=== PATIENT | male | born 1995 | race Two or more races ===

== ENCOUNTER 2018-06-05 23:27 | Emergency (ER) | payer OTHER, MEDICAID ==
[~2018-06-05] VITALS: Ht 175.3 cm; Wt 68.0 kg
--- NOTE | 2018-06-05 23:30 | NUR ---
PT IS ON A 5150 HOLD BY [employer] AT 2320. ORIGINAL HOLD IS IN THE CHART.
--- NOTE | 2018-06-05 23:30 | NUR ---
PT BIB [facility] AND [employer] WITH A C/O SI. PT WAS FOUND ON THE [address] AND WAS ABOUT TO JUMP. PT WAS PULLED OFF THE LEDGE BY [employer] AND PT REFUSED TO GIVE THE [employer] HIS NAME OR ADDRESS. PT APPEARS APPREHENSIVE OF ANSWERING QUESTIONS. PT IS ON THE MONITOR AND CONTINUOUS PULSE OX. SR UP X2, SHOES ARE IN A BAG IN THE NURSE'S STATION AND PT IS IN BILATERAL HAND RESTRAINTS. PT APPEARS CALM AND COOPERATIVE.
--- NOTE | 2018-06-05 23:58 | NUR ---
DRY MILL OPERATOR IS AT THE BEDSIDE FOR BLOOD DRAW.
--- NOTE | 2018-06-06 00:08 | NUR ---
REPORT FROM OFFICER JOSÉ LUIS, SMART [employer]AM. [address]. AND PT WAS GETTING READY TO JUMP WHEN [place] [employer] PULLED HIM DOWN. PT IS NOT ANSWERING QUESTIONS. PT STATED: " I NEEDED 10 MORE SECONDS". PT WILL NOT TELL OFFICERS HIS NAME OR WHERE HE LIVES.
[2018-06-06 00:22] LABS: BASOPHILS % (AUTO) 0.2 % (0.0-2.0); EOSINOPHILS % (AUTO) 1.7 % (0.0-6.0); HEMATOCRIT 44 % (39-51); HEMOGLOBIN 14.2 g/dL (13.5-17.5); LYMPHOCYTES # (AUTO) 1.4 /CMM (0.8-4.8); LYMPHOCYTES % (AUTO) 9.2 % (20.0-44.0); MEAN CORPUSCULAR HGB CONC 33 g/dl (31.0-36.0); MEAN CORPUSCULAR VOLUME 92 fL (80-96); MONOCYTES # (AUTO) 1.2 /CMM (0.1-1.30); NEUTROPHILS % (AUTO) 80.9 % (43.0-81.0); PLATELET COUNT (AUTO) 194 /CMM (150-450); RED BLOOD CELL COUNT(AUTO) 4.75 MIL/uL (4.5-6.0); WHITE BLOOD COUNT (AUTO) 14.8 K/uL (4.3-11.0)
--- NOTE | 2018-06-06 00:30 | NUR ---
PT IS UNABLE TO GIVE A URINE SAMPLE. PT HAS A URINAL.
[2018-06-06 00:33] LABS: CALCIUM, SERUM 9.7 mg/dL (8.5-10.1); CARBON DIOXIDE 30 mmol/L (21-32); CHLORIDE 104 mmol/L (98-107); CREATININE 1.4 mg/dL (0.6-1.3); GLUCOSE 92 mg/dL (74-106); POTASSIUM 4.2 mmol/L (3.5-5.1); SODIUM SERUM 143 mmol/L (136-145); UREA NITROGEN, BLOOD 25 mg/dL (7-18)
[2018-06-06 00:43] LABS: ALANINE AMINOTRANSFERASE 49 U/L (12-78); ALBUMIN 4.3 g/dL (3.4-5.0); ALCOHOL, BLOOD < 3 mg/dL (0-0); ALKALINE PHOSPHATASE 85 U/L (46-116); ASPARTATE AMINOTRANSFERASE 27 U/L (15-37); BILIRUBIN,DIRECT 0.1 mg/dL (0.0-0.2); BILIRUBIN,TOTAL 0.3 mg/dL (0.2-1.0); TOTAL PROTEIN, SERUM 7.9 g/dL (6.4-8.2)
[2018-06-06 00:44] LABS: ACETAMINOPHEN < 0 ug/ml (10-30); SALICYLATE 1.4 mg/dL (2.8-20.0)
--- NOTE | 2018-06-06 01:20 | NUR ---
PT STILL IS UNABLE TO GIVE A URINE SAMPLE.
--- NOTE | 2018-06-06 01:40 | NUR ---
PT REC'D A CUP OF WATER. PT IS STILL TRYING TO GIVE A URINE SAMPLE.
--- NOTE | 2018-06-06 02:16 | NUR ---
LEXIE VACA LCSW, IS AT THE BEDSIDE SPEAKING TO THE PT.
--- NOTE | 2018-06-06 02:16 | NUR ---
PT IS STILL UNABLE TO GIVE A URINE SAMPLE AT THIS TIME. PT STILL HAS THE URINAL AND WILL CONTINUE TO TRY AND GIVE A SAMPLE.
--- NOTE | 2018-06-06 02:53 | NUR ---
PT IS STILL TRYING TO GIVE A URINE SAMPLE.
[2018-06-06 03:58] LABS: APPEARANCE,URINE CLEAR (CLEAR); BILIRUBIN,URINE NEGATIVE (NEGATIVE); BLOOD, URINE NEGATIVE Ery/uL (NEGATIVE); COLOR,URINE YELLOW (YELLOW); KETONES,URINE 3+ (NEGATIVE); LEUKOCYTE ESTERASE ,URINE NEGATIVE (NEGATIVE); NITRITE, URINE NEGATIVE (NEGATIVE); PROTEIN,URINE NEGATIVE (NEGATIVE); UGLUCOSE NEGATIVE (NEGATIVE); UROBILINOGEN,URINE 0.2 EU/dL (0.2)
[2018-06-06 04:22] LABS: BACTERIA,URINE Few /HPF (None Seen); MUCUS,URINE Many /LPF (None Seen); RBC,URINE 0-2 /HPF (0-2); SQUAMOUS EPITHELIAL CELL,UR Few /HPF (None Seen); WBC,URINE 0-2 /HPF (0-3)
[2018-06-06] MEDS ORDERED: HALOPERIDOL LACTATE INJ 5 MG/ML VIAL ONE (05:11)
[2018-06-06] MEDS ORDERED: HALOPERIDOL 5 MG TABLET ONE (05:16)
[2018-06-06] MEDS ORDERED: HALOPERIDOL 1 MG TABLET PO ONE (05:30)
[2018-06-06] MEDS ORDERED: HALOPERIDOL LACTATE INJ 5 MG/ML VIAL IM ONE (05:30)
[2018-06-06] MEDS ORDERED: HALOPERIDOL LACTATE 10 MG/5 ML UDC PO ONE (05:30)
--- NOTE | 2018-06-06 07:15 | NUR ---
RECEIVED CHANGE OF SHIFT REPORT FROM BILLY GARCIA
--- NOTE | 2018-06-06 07:30 | NUR ---
PT SITTING AT BEDSIDE, WITH 1:1 SITTER D/T SUICIDE PRECAUTIONS. PT AAOX4, COOPERATIVE, APPEARS CALM AND COLLECTED, DENIES SI/HI AT THIS TIME, RESPIRATIONS EVEN AND UNLABORED, NAD NOTED, VSS.
--- NOTE | 2018-06-06 08:25 | NUR ---
REQUESTED FOR A MEAL TRAY
--- NOTE | 2018-06-06 08:36 | NUR ---
PT CURRENTLY EATING, SITTER AT BEDSIDE
--- NOTE | 2018-06-06 08:39 | NUR ---
Called Laura for PET eval
[2018-06-06] MEDS ORDERED: hydrOXYzine 10 MG TABLET ONE (10:28)
[2018-06-06] MEDS ORDERED: hydrOXYzine 10 MG TABLET PO ONE (10:30)
--- NOTE | 2018-06-06 11:13 | NUR ---
SPOKE TO BOBBY FROM [facility] ADMITTING MD: DOMINGA SMITH MD [address] [facility], ROOM 119-A CALL FOR REPORT [phone]
--- NOTE | 2018-06-06 11:24 | NUR ---
CALLED [facility] FOR BLS TRANSPORT OF THIS PATIENT TO [facility] ETA 1400 TRIP #[id number]
[2018-06-06 11:55] VITALS: BP 115/86
--- NOTE | 2018-06-06 13:20 | NUR ---
GAVE REPORT TO BILLY ACEVEDO AT [facility]
== END 2018-06-06 14:43 ==
LOC: ER 23:30
DX: R46.89 Other symptoms and signs involving appearance and behavior (principal)
CPT/HCPCS: 36415; 80048-TC; 80076-TC; 80305; 81000-TC; 85025-TC; A4606; G0480; J1630; Q0177; Z7610